=== PATIENT | female | born 1990 | race Caucasian/White ===

== ENCOUNTER 2023-10-08 08:25 | Outpatient (REF) | payer OTHER, SELFPAY | END 2023-10-08 08:26 | disposition home or self-care (01) | LOC: NFLDREF 08:25 | PROVIDERS: PCP Family Medicine; Referring Provider Family Medicine; Visit Provider Family Medicine | DX: Z00.00 Encounter for general adult medical examination without abnormal findings (principal); N92.6 Irregular menstruation, unspecified; F41.9 Anxiety disorder, unspecified; Z13.6 Encounter for screening for cardiovascular disorders | CPT/HCPCS: 80053; 80061 ==

== ENCOUNTER 2024-01-03 10:27 | Day surgery (SDC) | payer OTHER, SELFPAY ==
[2024-01-03] VITALS (12 sets, daily range): BP systolic 135–155; BP diastolic 47–111; PULSE 78–89; RESP 12–16; TEMP 36.3–36.6; O2SAT 92–99; BMI 26.5
[2024-01-03] MEDS: LACTATED RINGERS 1000 ML 1,000 ML 100 ML IV (10:45)
[2024-01-03] MEDS: SODIUM CHLORIDE 0.9 % (FLUSH) 10 ML SYRINGE IVF (10:45)
[2024-01-03 10:46] LABS: Ur HCG Qualitative* Negative (Negative)
--- NOTE | 2024-01-03 11:06 | W.PM.H&PU ---
History & Physical Update History & Physical Update H&P Reviewed and patient assessed: The following changes are noted below H&P Updates: Patient diagnosed with hypertension and started on antihypertensive medication by primary care physician. Pending anesthesia evaluation. Otherwise no new updates.
[2024-01-03 11:08] LABS: Hemoglobin* 13.7 gm/dL (12.0-16.0)
[2024-01-03] MEDS: BUPIVACAINE 0.5% 30 ML 10 ML INJECTION (12:39)
--- NOTE | 2024-01-03 12:55 | W.ANESCHARGE ---
Anesthesia Charges Start Date/Time Anesthesia Start Date: 01/03/24 Anesthesia Start Time: 12:06 Stop Date/Time Anesthesia Stop Date: 01/03/24 Anesthesia Stop Time: 13:21
--- NOTE | 2024-01-03 13:13 | P.GYNPRC_ITS ---
Procedure Note Date of procedure: 01/03/24 Pre-op diagnosis: Family Planning Post-op diagnosis: same Procedure: Laparoscopic bilateral salpingectomy Anesthesia: GETA Complications: None Surgeon: Matheus Castillo MD Water Hydrant Installer: Janel Corley Estimated blood loss (mL): 5 IV fluids (mL): 600 Urine Output (mL): 50 (Clear urine at end of preocedure) Pathology: specimen obtained, sent to pathology (bilateral fallopian tubes) Condition: stable Disposition: same day Findings: Findings: Bimanual exam: Midline uterus of normal size, adnexa without palpable masses, pelvic exam with speculum: Cervix without any abnormal discharge or lesions, multiparous os, intra-abdominal survey: No gross abnormalities, uterus midline of around 8 cm, bilateral ovaries grossly normal, right ovary with a small simple cyst of about 1-2cm, fallopian tubes normal. Procedure Description: Patient was taken to the OR with IV fluid running and pneumatic compression stockings applied to the lower extremities. General anesthesia was obtained without difficulty. The patient was placed in the dorsal lithotomy position with Alexander type stirrups with knee bent at 30 degree angles. Patient was prepared and draped under usual sterile technique. Examination under anesthesia revealed a normal size, midline uterus. The bladder was emptied and Daly catheter placed. Speculum was placed in the vagina. Uterine manipulator was introduced. Two Allis clamps were applied to the periumbilical skin for manual elevation of the abdomen after first anesthetizing area with 0.5% plain Bupivacaine. A vertical skin incision was made in the umbilical fold. 5 mm Optiview trocar introduced into the peritoneal cavity with preperitoneal insufflation first noted, second attempt successful. Direct visualization confirmed intraperitoneal placement. Pneumoperitoneum was established with CO2 gas to a pressure of 15mmHg. Findings as above. An intra-abdominal survey revealed normal-appearing liver, gallbladder, spleen, and lack of any visceral or vascular injury. The Trendelenburg position was obtained to facilitate pelvic exposure. Two 5 mm trocars were inserted, one on the left lower abdominal quadrant the other about 5cm lateral towards the left of the umbilicus under direct laparoscopic visualization. The left fallopian tube was elevated away from the pelvic sidewall with an atraumatic grasper. Utilizing Thunderbeat bipolar energy mesosalpinx was serially coagulated and cut until cornual region. Hemostasis was achieved. Tube was easily removed via 5 mm trocar. Same procedure performed on right fallopian tube. Hemostasis secured. Both fallopian tubes sent to pathology. Abdomen and pelvis were thoroughly inspected. Good hemostasis was noted at resection sites. Trocars removed under direct visualization. All instruments were removed from the abdomen and vagina. The pneumoperitoneum was released, and correct instrument counts were confirmed. Skin incisions were closed with 4-0 Monocryl sutures in a subcuticular fashion. The patient was taken to the recovery room in a stable condition. Patient will be discharged from recovery after all the criteria are met for discharge. She was given instructions regarding follow-up visit in 2 weeks at [facility]. Postop pain management, lifting restrictions, intercourse restrictions were discussed with patient before surgery all questions were answered. The brief completed at the end of procedure, procedure performed, pathology specimens and EBL clarified.
[2024-01-03] MEDS: fentaNYL 100 MCG/2 ML inj 50 MCG IVP ×2 (13:18→13:28)
--- NOTE | 2024-01-03 13:22 | W.ANESCHARGE ---
Anesthesia Charges Start Date/Time Anesthesia Start Date: 01/03/24 Anesthesia Start Time: 12:06 Stop Date/Time Anesthesia Stop Date: 01/03/24 Anesthesia Stop Time: 13:21
== END 2024-01-03 14:39 | disposition home or self-care (01) ==
LOC: OR 10:28
PROVIDERS: PCP Family Medicine; Visit Provider Obstetrics & Gynecology
PROC: (CPT 58661; principal; 2024-01-03 11:45)
DX: Z30.2 Encounter for sterilization (principal)
CPT/HCPCS: 58661; 00840; 00851; 36415; 81025; 85018; 88302; J0330; J0665; J1100; J2250; J2405; J2704; J3010; J3490; J7120

== ENCOUNTER 2024-05-19 07:40 | Outpatient (CLI) | payer OTHER, SELFPAY ==
--- OUTSIDE RECORDS SUMMARY | 2024-05-21 00:06 | XMS_ITS | Referral Summary ---
Author Organization [place] Address [address] [place] [address] Care Team Providers Care Fundraising Assistant Name Role Phone Clinic, [facility] Primary Care Provider Allergies No known active allergies Medications Medication Sig Dispensed Refills Start Date End Date Status metoclopramide (REGLAN) 10 MG tablet Take 1 tablet (10 mg) by mouth 3 times daily as needed (Nausea or Vomiting) 20 tablet 04/15/2021 Active oxyCODONE (ROXICODONE) 5 MG tablet Take 1 tablet (5 mg) by mouth every 6 hours as needed for pain 12 tablet 04/15/2021 Active Social History Tobacco Use Types Packs/Day Years Used Date Smoking Tobacco: Never Assessed Adolescent Education Answer Date Record ed Getting School Help Needed Not on file 07/20 Sex and Gender Information Value Date Recorded Sex Assigned at Not on file Gender Identity Not on file Sexual Orientation Not on file Last Filed Vital Signs Vital Sign Reading Time Taken Comments Blood Pressure 142/102 04/15/2021 10:10 PM CDT Pulse 69 04/15/2021 9:30 PM CDT Temperature 36.8 ??C (98.3 ??F) 04/15/2021 5:32 PM CD T Respiratory Rate 19 04/15/2021 5:32 PM CDT Oxygen Saturation 93% 04/15/2021 10:10 PM CDT Inhaled Oxygen Concentration - - Weight 63.5 kg (140 lb) 04/15/2021 5:32 PM CDT Height 160 cm (5' 3) 04/15/2021 5:32 PM CDT Body Mass Index 24.8 04/15/2021 5:32 PM CDT Plan of Treatment Not on file Care Teams Fundraising Assistant Relationship Specialty Start Date End Date Clinic, [address] [address] PCP - General 04/15/21
--- OUTSIDE RECORDS SUMMARY | 2024-05-21 00:06 | XMS_ITS | Clinical Summary ---
Author Organization [facility] Address [place], [place] [address] Care Team Providers Care Dean Of Faculty Name Role Phone Pcp, No Primary Care Provider Unavailabl e Allergies No known active allergies Medications Medication Sig Dispensed Refills Start Date End Date Status vitamin-folic acid 1 mg ( VITAMIN) tablet/capsule Take 1 tablet by mouth once daily. 0 01/23/2012 Active ibuprofen (MOTRIN IB) 200 mg tablet Take 1-3 tablets by mouth every 6 hours if needed for Other (Specify) (for uterine cramping). Take with food. 100 tablet 0 08/19/2012 Active Active Problems Problem Noted Date Diagnosed Date Hx of delivery, currently 08/17 labor 08/17/2012 , high-risk, histor y of previus obstetrical problem 03/22/2012 Dysthymic disorder 01/24/2010 Anxiety state, unspecified 01/24/2010 Tobacco use disorder 05/30/2007 Resolved Problems Problem Noted Date Diagnosed Date Resolved Date Depressive disorder, not elsewhere classified 06/05/20 07 10/20/2008 Overview: depression with anxiety Premature rupture of membran es in , unspecified as to episode of care 05/30/20072009 Supervision of normal first 05/22/2007 10/20/2008 Immunizations Name Administration Dates Next Due Influenza, IIV3 (Age >=3 years) 10/20/2008,08/22,09/15/2006 Td (Age >=7 Years) 02/20/2000 Tdap 06/10/2012 Family History Medical History Relation Name Comments Other Maternal Grandmother el on, emphysema Cancer Paternal Grandmother unknown Relation Name Status Comments Maternal Grandmother Paternal Grandmother Social History Tobacco Use Types Packs/Day Years Used Date Smoking Tobacco: Every Day Cigarettes Smokeless Tobacco: Never Tobacco Cessation:Ready to Q uit: No; Counseling Given: No Alcohol Use Standard Drinks/Week Comments Yes 0 (1 standard drink = 0.6 oz pur e alcohol) a couple beers a week Sex and Gender Information Value Date Recorded Sex Assigned at Not on file Gender Identity Not on file Sexual Orientation Not on file Obstetrics History Para Term AB IAB SAB Ectopic Multiple Livin g Live Births 2 2 0 2 0 0 0 0 1 Date Outcome GA Total Labor Labor/2nd/3rd Weight Sex Type Anes PTL Qing A1 A5 Name Clin 28w 0d 1.3 kg (2 lb 14 oz) M Vag duvall Comments:delivered at 28 weeks. ruptured membranes. 08/18/20 12 34w 4d F TOBY Z,BG Delivery Location:[facility] Last Filed Vital Signs Vital Sign Reading Time Taken Comments Blood Pressure 114/75 10/07/2012 3:53 PM LICENSED LOAN OFFICER ASSISTANT Pulse 79 10/07/2012 3:53 PM LICENSED LOAN OFFICER ASSISTANT Temperature 36.4 ??C (97.6 ??F) 08/19/2012 10:15 AM C DT Respiratory Rate 18 08/19/2012 10:15 AM CDT Oxygen Saturation 98% 08/18/2012 10:30 AM CDT Inhaled Oxygen Concentration - - Weight 56.2 kg (124 lb) 10/07/2012 3:53 PM LICENSED LOAN OFFICER ASSISTANT Height 160 cm (5' 3) 08/17/2012 7:30 AM CDT Body Mass Index 21.97 08/17/2012 7:30 AM CDT Plan of Treatment Health Maintenance Due Date Last Done Comments Depression screening for age 12+ 2000 BMI (ht and wt on same day) for age 18+ 2006 Pap test for age 21-65 02/14/2019 6, 02/21/2012, 02/21/2012, Additional history exists Tetanus booster 06/10/2022 06/10/2012, 01/28, 02/20/2000 COVID-19 vaccine series (2022- season) 2023 Influenza for age 9-49 06/29/2024 8, 08/22/2007, 09/15/2006 HIV for age 15-65 Completed 01/23/2012 Hepatitis C screening for age 18-79 Completed 01/23/2012 Tdap Completed 06/10/2012 Pneumococcal series for age 6-64 Aged Out No longer eligible based on patient's age to complete this topic Procedures Procedure Name Priority Date/Time Associated Diagnosis Comments METAL CUTTER THIN PREP PAP SCREEN IMAGED Routine 02/15/2016 12:00 PM CDT ANTI HIV 1/2 Routine 01/23/2012 2:42 PM CDT Supervision of other normal ANTI HCV Routine 01/23/2012 2:42 PM CDT Supervision of other normal from Last 3 Months or Most Recently Relevant to Health Maintenance Results * METAL CUTTER THIN PREP PAP SCREEN IMAGED (02/15/2016 12:00 PM CDT) METAL CUTTER CYTOLOGY See Anatomic Pathology case 02/16/2016 8:00 PM CDT [facility] Specimen (specimen) (Cervical) Client Collect / Unknown 02/15/2016 12:00 PM CDT 02/15/2016 7:13 PM CDT Gwen Castellanos MD PATHOLOGY/CYTOLOGY [facility] [address] [place] [address], * ANTI HCV (01/23/2012 2:42 PM CDT) ANTI HCV Non-reacti ve [facility] Blood specimen (specimen) BLOOD SPECIMEN / Unknown 01/23/2012 2:42 PM CDT 01/23/2012 2:36 PM CDT Kaylene TORRES SEND OUTS [facility] INTERNAL ZIP [id number] [place] [address] * ANTI HIV 1/2 (01/23/2012 2:42 PM CDT) ANTI HIV 1/2 Non-reacti ve [facility] Blood specimen (specimen) BLOOD SPECIMEN / Unknown 01/23/2012 2:42 PM CDT 01/23/2012 2:36 PM CDT Kaylene TORRES SEND OUTS [facility] INTERNAL ZIP [address] [place] [id number] from Last 3 Months or Most Recently Relevant to Health Maintenance Advance Directives * Full Code (Latest Code Status on File) Date Activated Date Inactivated Comments 08/17/2012 9:08 AM 08/18/2012 2:15 PM * Full Code Date Activated Date Inactivated Comments 06/07/2007 5:46 AM 06/08/2007 6:56 PM * Full Code Date Activated Date Inactivated Comments 06/06/2007 8:19 PM 06/07/2007 5:38 AM * Full Code Date Activated Date Inactivated Comments 05/30/2007 12:49 AM 06/06/2007 8:19 PM Care Teams Dean Of Faculty Relationship Specialty Start Date End Date Pcp, No . PCP - General 06/17/14
--- OUTSIDE RECORDS SUMMARY | 2024-05-21 00:06 | XMS_ITS | Clinical Summary ---
Author Organization [place] Address [address] [place] [address] Care Team Providers Care Convention Services Manager Name Role Phone Clinic, [facility] Primary Care Provider Allergies No known [...] of Treatment Not on file Care Teams Convention Services Manager Relationship Specialty Start Date End Date Clinic, [address] [address] PCP - General 04/15/21
== END 2024-05-19 07:41 | disposition home or self-care (01) ==
LOC: NFLDREF 05-21 00:05
PROVIDERS: PCP Family Medicine; Referring Provider Family Medicine; Visit Provider Family Medicine
DX: I10 Essential (primary) hypertension (principal); F41.9 Anxiety disorder, unspecified
CPT/HCPCS: 80048; 84443

== ENCOUNTER 2024-06-11 08:06 | Outpatient (CLI) | payer OTHER, SELFPAY ==
--- OUTSIDE RECORDS SUMMARY | 2024-06-12 09:37 | XMS_ITS | Referral Summary ---
Author Organization [place] Address [address] [place] [address] Care Team Providers Care Thin Film Technician Name Role Phone Clinic, [facility] Primary Care Provider Allergies No known [...] of Treatment Not on file Care Teams Thin Film Technician Relationship Specialty Start Date End Date Clinic, [address] [address] PCP - General 04/15/21
--- OUTSIDE RECORDS SUMMARY | 2024-06-12 09:37 | XMS_ITS | Clinical Summary ---
Author Organization [facility] Address [address] [place] [address] Care Team Providers Care Data Warehouse Specialist Name Role Phone Clinic, [facility] Primary Care Provider Allergies No known [...] of Treatment Not on file Care Teams Data Warehouse Specialist Relationship Specialty Start Date End Date Clinic, [address] [address] PCP - General 04/15/21
--- OUTSIDE RECORDS SUMMARY | 2024-06-12 09:37 | XMS_ITS | Clinical Summary ---
Author Organization [facility] Address [place], [place] [address] Care Team Providers Care Refrigerated National Truck Driver Name Role Phone Pcp, No Primary Care [...] 12 34w 4d F TOBY Z,BG Delivery Location:[facility] Last Filed Vital Signs Vital Sign Reading Time Taken Comments Blood Pressure 114/75 10/07/2012 3:53 PM MIDDLE SCHOOL PRINCIPAL Pulse 79 10/07/2012 3:53 PM MIDDLE SCHOOL PRINCIPAL Temperature 36.4 ??C (97.6 ??F) 08/19/2012 10:15 AM C DT Respiratory Rate 18 08/19/2012 10:15 AM CDT Oxygen Saturation 98% 08/18/2012 10:30 AM CDT Inhaled Oxygen Concentration - - Weight 56.2 kg (124 lb) 10/07/2012 3:53 PM MIDDLE SCHOOL PRINCIPAL Height 160 cm (5' 3) 08/17/2012 7:30 [...] Procedure Name Priority Date/Time Associated Diagnosis Comments TRAFFIC SURVEY TECHNICIAN THIN PREP PAP SCREEN IMAGED Routine 02/15/2016 12:00 PM CDT ANTI HIV 1/2 Routine 01/23/2012 2:42 PM CDT Supervision of other normal ANTI HCV Routine 01/23/2012 2:42 PM CDT Supervision of other normal from Last 3 Months or Most Recently Relevant to Health Maintenance Results * TRAFFIC SURVEY TECHNICIAN THIN PREP PAP SCREEN IMAGED (02/15/2016 12:00 PM CDT) TRAFFIC SURVEY TECHNICIAN CYTOLOGY See Anatomic Pathology case 02/16/2016 8:00 PM CDT [facility] LABORATORY Specimen (specimen) (Cervical) Client Collect / Unknown 02/15/2016 12:00 PM CDT 02/15/2016 7:13 PM CDT Gwen Castellanos MD PATHOLOGY/CYTOLOGY [facility] [address] [place] [address], * ANTI HCV (01/23/2012 2:42 PM CDT) ANTI HCV Non-reacti ve [facility] Blood specimen (specimen) BLOOD SPECIMEN / Unknown 01/23/2012 2:42 PM CDT 01/23/2012 2:36 PM CDT Kaylene TORRES SEND OUTS [facility] INTERNAL ZIP [address] [place] [address] * ANTI HIV 1/2 (01/23/2012 2:42 PM CDT) ANTI HIV 1/2 Non-reacti ve [facility] Blood specimen (specimen) BLOOD SPECIMEN / Unknown 01/23/2012 2:42 PM CDT 01/23/2012 2:36 PM CDT Kaylene TORRES SEND OUTS [facility] INTERNAL ZIP [id number] [place] [phone] from Last 3 Months or Most Recently [...] 12:49 AM 06/06/2007 8:19 PM Care Teams Refrigerated National Truck Driver Relationship Specialty Start Date End Date Pcp, No . PCP - General 06/17/14
== END 2024-06-11 08:07 | disposition home or self-care (01) ==
LOC: NFLDREF 06-12 09:34
PROVIDERS: PCP Family Medicine; Referring Provider Family Medicine; Visit Provider Family Medicine
DX: I10 Essential (primary) hypertension (principal)
CPT/HCPCS: 80048

== ENCOUNTER 2024-12-17 07:33 | Outpatient (CLI) | payer OTHER, SELFPAY | END 2024-12-17 07:34 | disposition home or self-care (01) | LOC: NFLDREF 12-20 04:45 | PROVIDERS: PCP Family Medicine; Referring Provider Family Medicine; Visit Provider Family Medicine | DX: E78.5 Hyperlipidemia, unspecified (principal); I10 Essential (primary) hypertension; R73.01 Impaired fasting glucose | CPT/HCPCS: 80053; 80061 ==

== ENCOUNTER 2025-01-27 13:51 | Outpatient (CLI) | payer OTHER, SELFPAY ==
[2025-01-30 04:35] LABS: HPV Source Cervical/Vag; HPV, High Risk by TMA Not Detected
== END 2025-01-27 13:52 | disposition home or self-care (01) ==
PROVIDERS: PCP Family Medicine; Visit Provider Family Medicine
DX: Z12.4 Encounter for screening for malignant neoplasm of cervix (principal)
CPT/HCPCS: 87624; 87625; 88141; 88142